=== PATIENT | male | born 1970 | race Caucasian/White ===

== ENCOUNTER 2018-12-31 13:49 | Emergency (ER) | payer BC ==
[~2018-12-31] VITALS: Ht 170.2 cm; Wt 81.6 kg
[2018-12-31] MEDS ORDERED: KETOROLAC 30 MG/ML VIAL. IM ONE (14:30)
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
[2018-12-31] MEDS ORDERED: HYDR-3164 PO (14:56)
[2018-12-31 15:15] VITALS: BP 133/80
[2018-12-31] MEDS ORDERED: HYDROcodone/APAP 5/325MG 1 TAB TABLET PO ONE (15:30)
== END 2018-12-31 15:40 | disposition home or self-care (01) ==
LOC: ER 13:49
DX: R07.81 Pleurodynia (principal); R05 Cough; V47.5XXA Car driver injured in collision with fixed or stationary object in traffic accident, initial encounter; Y93.89 Activity, other specified; Y92.410 Unspecified street and highway as the place of occurrence of the external cause; Y99.8 Other external cause status
CPT/HCPCS: 71046; 96372; 99283; J1885

== ENCOUNTER 2019-06-23 10:25 | Emergency (ER) | payer SELFPAY ==
[~2019-06-23] VITALS: Ht 185.4 cm; Wt 94.8 kg
[~2019-06-23 10:25] MED LIST: HYDR-3164 PO
[2019-06-23 12:50] VITALS: BP 157/98
[2019-06-23] MEDS ORDERED: KETOROLAC 60 MG/2 ML VIAL. IM ONE (13:15)
[2019-06-23] MEDS ORDERED: DEXAMETHASONE SOD PHOS 20 MG/5 ML VIAL. IM ONE (13:15)
[2019-06-23] MEDS ORDERED: METH4TAB2 PO (13:31)
[2019-06-23] MEDS ORDERED: DICL50TA4 PO (13:31)
[2019-06-23] MEDS ORDERED: CYCL10TA2 PO (13:31)
--- NOTE | 2019-06-23 13:37 | PHYS DOC ---
Past Medical History Past Medical History: No Pertinent History Past Surgical History: Other Additional Past Surgical Histo: hernia, right hand shoulder Additional Information: 1/ppd Alcohol Use: Occasionally Drug Use: None Adult General Chief Complaint Chief Complaint: SHOULDER INJURY HPI HPI Patient is a 49 year old male with no significant medical history who presents to the ED today complaining of 5 out of 10 right shoulder pain that began 3 months ago. Patient denies any known injury. States the pain is worse in the morning when he wakes up. Describes the pain and stiffness. He states he works for [email or web address] and they will not let him back to work unless he is evaluated Review of Systems Review of Systems Constitutional: Denies fever or chills [] Musculoskeletal: Reports right shoulder pain Integument: Denies rash or skin lesions [] Neurologic: Denies headache, focal weakness or sensory changes [] All other systems were reviewed and found to be within normal limits, except as documented in this note. Current Medications Current Medications Current Medications Medications (Trade) Dose Ordered Sig/[facility] Start Time Stop Time Status Last Admin Dose Admin Dexamethasone Sodium Phosphate (Decadron) 10 mg 1X ONCE 06/23/19 13:15 06/23/19 13:16 DC 06/23/19 13:23 10 MG Ketorolac Tromethamine (Toradol Im) 60 mg 1X ONCE 06/23/19 13:15 06/23/19 13:16 DC 06/23/19 13:23 60 MG Allergies Allergies Allergies Coded Allergies Type Severity Reaction Last Updated Verified No Known Drug Allergies 12/31/18 No Physical Exam Physical Exam Constitutional: Well developed, well nourished, no acute distress, non-toxic appearance. [] Skin: Warm, dry, no erythema, no rash. [] Back: No tenderness, no CVA tenderness. [] Extremities: Right upper extremity with no obvious deformity. No tenderness, no cyanosis, no clubbing, ROM intact, no edema. +2 right radial pulse. Adequate radial, medial, ulnar sensation to the right upper extremity. Neurologic: Alert and oriented X 3, normal motor function, normal sensory function, no focal deficits noted. [] Psychologic: Affect normal, judgement normal, mood normal. [] Current Patient Data Vital Signs Vital Signs Date Time Temp Pulse Resp B/P (MAP) Pulse Ox O2 Delivery O2 Flow Rate FiO2 06/23/19 12:50 98.5 78 16 157/98 (117) 95 Room Air 98.5 EKG EKG [] Radiology/Procedures Radiology/Procedures [] Course & Med Decision Making Course & Med Decision Making Pertinent Labs and Imaging studies reviewed. (See chart for details) This is a 49-year-old male patient who presents to the ED today complaining of right shoulder pain that began 3 months ago. No known injury. He is an employee of [employer] and would like paperwork to be done to allow him back to work. Patient was provided orthopedic doctor for follow-up. Given prescription for Me drol Dosepak and diclofenac as well as cyclobenzaprine. Ice elevation encouraged. Dragon Disclaimer Dragon Disclaimer This electronic medical record was generated, in whole or in part, using a voice recognition dictation system. Departure Departure Impression: Primary Impression: Right shoulder pain Disposition: HOME, SELF-CARE Condition: STABLE Referrals: NO PCP (PCP) ELMER ALVAREZ MD follow up in one week Patient Instructions: Shoulder Pain, [id number] Additional Instructions: You have right shoulder pain. We provided you a specialist/orthopedic doctor. Contact them in the course of this week and follow-up. Try to ice and elevate the extremity. Take the prescribed medications as ordered. Scripts Diclofenac Sodium (DICLOFENAC SODIUM) 50 Mg Tablet.dr 1 TAB PO BID, #20 TAB 0 Refills Prov: LYN BOB APRN 06/23/19 Cyclobenzaprine Hcl (CYCLOBENZAPRINE HCL) 10 Mg Tablet 1 TAB PO TID, #30 TAB Prov: LYN BOB APRN 06/23/19 Methylprednisolone (MEDROL) 4 Mg Tab.ds.pk 1 PKG PO UD, #1 PKG Prov: LYN BOB APRN 06/23/19 Problem Qualifiers Primary Impression: Right shoulder pain Chronicity: chronic Qualified Codes: M25.511 - Pain in right shoulder; G89.29 - Other chronic pain LYN BOB APRN Jun 23, 2019 13:37
== END 2019-06-23 13:54 | disposition home or self-care (01) ==
LOC: ER 10:25
DX: M25.511 Pain in right shoulder (principal); F17.200 Nicotine dependence, unspecified, uncomplicated
CPT/HCPCS: 96372; 99284; J1100; J1885